=== PATIENT | female | born 1980 | race American Indian/Alaskan Native ===

== ENCOUNTER 2017-10-16 05:24 | Inpatient (IN) | payer MEDICAID ==
[2017-10-16] MEDS: LACTATED RINGERS 1,000 ML IV SCH ×2 (06:00→07:09)
[2017-10-16] MEDS ORDERED: LACTATED RINGERS 1,000 ML ONE (06:08)
[2017-10-16] MEDS ORDERED: SUBLIMAZE ONE (06:19)
[2017-10-16] MEDS ORDERED: ZOFRAN IV PRN ×2 (06:21→07:38)
[2017-10-16] MEDS ORDERED: BRETHINE IVP PRN (06:21)
[2017-10-16] MEDS ORDERED: SUBLIMAZE IV PRN (06:21)
[2017-10-16] MEDS ORDERED: STADOL IV PRN (06:21)
[2017-10-16] MEDS ORDERED: MINERAL OIL PO PRN (06:21)
[2017-10-16] MEDS ORDERED: BRETHINE SUB-Q PRN (06:21)
[2017-10-16] MEDS ORDERED: POLYCILLIN/NS 2 GM/100 ML 2 GM/100 ML BAG IV ONE (06:21)
[2017-10-16] MEDS ORDERED: ePHEDrine SULFATE IV PRN (06:21)
[2017-10-16] MEDS ORDERED: XYLOCAINE 2% INFILTRATI ONE (06:21)
--- NOTE | 2017-10-16 06:24 | History and Physical Report ---
History of Present Illness Date of examination: 10/16/17 Date of admission: 10/16/17 05:44 Chief complaint: Labor History of present illness: Pt is a EDC 10/16/17; EGA 40 0/7 weeks presents to L&D complaining of RUC' s q 3-4 mins. She received care at [facility]; however records are not available and GBS is unknown. She had a previous C Section and desires a TOLAC. Past History Past Medical History: no pertinent history Past Surgical History: section Family/Genetic History: none Social history: no significant social history, - Obstetrical History Expected Date of Delivery: 10/16/17 Actual Gestation: 40 Week(s) 0 Day(s) : 5 Medications and Allergies Allergies Allergy/AdvReac Type Severity Reaction Status Date / Time No Known Allergies Allergy Unverified 10/16/17 05:58 Home Medications Medication Instructions Recorded Confirmed Last Taken Type Loratadine [Claritin] 10 mg PO DAILY 10/16/17 10/16/17 10/15/17 History Vit-Fe Fumar-FA [ 1 tab PO QDAY 10/16/17 10/16/17 10/15/17 History Vitamin] Review of Systems All systems: negative - Vital Signs Vital signs: Vital Signs Pulse Resp BP 78 22 132/73 10/16/17 06:15 10/16/17 06:15 10/16/17 06:15 Temp Pulse Resp BP Pulse Ox 78 22 132/73 10/16/17 06:15 10/16/17 06:15 10/16/17 06:15 - Physical Exam Breasts: Positive: deferred Cardiovascular: Regular rate Lungs: Positive: Clear to auscultation Abdomen: Positive: normal appearance Genitourinary (Female): Positive: normal external genitalia Vagina: Positive: normal moisture Uterus: Positive: enlarged Extremities: Positive: normal - Obstetrical FHR: category 1 Uterine Contraction Monitor Mode: External Cervical Dilatation: 6.5 (per nurse) Cervical Effacement Percentage: 90 (per nurse) station: -1 Uterine Contraction Pattern: Regular Uterine Contraction Intensity: Strong/Firm Results Result Diagrams: 10/16/17 06:00 All other labs normal. Assessment and Plan - Patient Problems (1) 40 weeks gestation of Onset Date: 10/16/17 Current Visit: Yes Status: Acute Plan to address problem: A: IUP @ 40 0/7 weeks in labor Previous C Section - desires a TOLAC Unknown GBS P: Admit to L&D for expectant vaginal delivery Expectant IV Ampicillin (2) Active labor at term Onset Date: 10/16/17 Current Visit: Yes Status: Acute (3) Previous section Onset Date: 10/16/17 Current Visit: Yes Status: Acute
[2017-10-16 06:36] LABS: Hematocrit 38.6 % (30.3-42.9); Hemoglobin 13.3 gm/dl (10.1-14.3); Mean Corpuscular HGB Conc 35 % (30-34); Mean Corpuscular Hemoglobin 32 pg (28-32); Mean Corpuscular Volume 93 fl (79-97); Platelet Count 232 K/mm3 (140-440); Red Blood Count 4.13 M/mm3 (3.65-5.03); Red Cell Distribution Width 13.9 % (13.2-15.2)
[2017-10-16] MEDS ORDERED: PITOCin/NS 20 UNIT/1000ML DRIP 20 UNITS/1,000 ML BAG IV SCH ×2 (07:00→08:00)
[2017-10-16] MEDS ORDERED: PITOCin/NS 30 UNIT/500ML 30 UNITS/500 ML BAG IV SCH (07:00)
--- NOTE | 2017-10-16 07:29 | Anesthesia Consultation ---
Anesthesia Consult and Med Hx Date of service: 10/16/17 - Airway Anesthetic Teeth Evaluation: Good ROM Head & Neck: Adequate Mental/Hyoid Distance: Adequate Mallampati Class: Class II Intubation Access Assessment: Probably Good - Pulmonary Exam CTA: Yes - Cardiac Exam Cardiac Exam: RRR - Pre-Operative Health Status ASA Pre-Surgery Classification: ASA2 Proposed Anesthetic Plan: Epidural, Spinal - Pulmonary Hx Asthma: No COPD: No Hx Pneumonia: No - Cardiovascular System Hx Hypertension: No - Central Nervous System Hx Seizures: No Hx Psychiatric Problems: No - Endocrine Hx Renal Disease: No Hx Hypothyroidism: No Hx Hyperthyroidism: No - Hematic Hx Anemia: No Hx Sickle Cell Disease: No - Other Systems Hx Alcohol Use: No
--- NOTE | 2017-10-16 07:31 | Progress Note ---
Subjective Date of service: 10/16/17 Interval history: Unable to place CSE for labor. patient had urge to push and delivered baby before neuraxial could be completed. Only got as far as Touhy needle placement into interspinous ligament. Objective - Constitutional Vitals: Vital Signs - 12hr 10/16/17 10/16/17 10/16/17 06:15 06:25 06:55 Pulse Rate 78 Respiratory 22 22 Rate Blood Pressure 132/73 [Left] - Labs CBC & Chem 7: 10/16/17 06:00 Labs: Abnormal lab results 10/16/17 Range/Units 06:00 MCHC 35 H (30-34) %
[2017-10-16] MEDS ORDERED: PHENERGAN PR PRN (07:38)
[2017-10-16] MEDS ORDERED: PHENERGAN PO PRN (07:38)
[2017-10-16] MEDS ORDERED: LANSINOH TP PRN (07:38)
[2017-10-16] MEDS ORDERED: TYLENOL PO PRN (07:38)
[2017-10-16] MEDS ORDERED: TUCKS PAD TP PRN (07:38)
[2017-10-16] MEDS ORDERED: BENADRYL PO PRN (07:38)
--- NOTE | 2017-10-16 07:45 | Procedure Note ---
OB Delivery Note - Delivery Date of Delivery: 10/16/17 Surgeon: LASHAUN SHIPMAN Estimated blood loss: 100cc - Vaginal Delivery presentation: vertex Delivery position: OA Intrapartum events: precipitous labor- <3hr Delivery induction: none Delivery augmentation: rupture of membranes Delivery monitor: external FHT, external uterine Route of delivery: Delivery placenta: spontaneous Delivery cord: 3 umbilical vessels Episiotomy: none Delivery laceration: 2nd degree (perineal) Delivery repair: vicryl Anesthesia: local Delivery comments: delivered OA and placed on Mom's chest for [id number] bonding and delayed cord clamping - A at 1 minute: 9 at 5 minutes: 9 Gender: Male (3879gms)
[2017-10-16] MEDS ORDERED: SODIUM CHLORIDE FLUSH SYRINGE 10 ML IV NR (08:00)
[2017-10-16] MEDS: MOTRIN PO SCH ×2 (09:30→20:45)
[2017-10-16] MEDS ORDERED: DULCOLAX PR PRN (10:00)
[2017-10-16] MEDS ORDERED: AMPICILLIN/NS 1 GM/50 ML 1 GM/50 ML BAG IV SCH (10:23)
[2017-10-16] MEDS: COLACE PO SCH ×2 (11:22→22:25)
[2017-10-16] MEDS: PRENATAL VITAMIN PO SCH (11:23)
[2017-10-16] MEDS: FEOSOL PO SCH ×2 (11:23→22:25)
[2017-10-16] MEDS: NORCO 5/325 PO PRN ×2 (11:24→22:29)
--- NOTE | 2017-10-16 19:12 | Post Anesthesia Evaluation ---
- Post Anesthesia Evaluation Patient Participated: Yes Airway Patent: Yes Stable Respiratory Function: Yes Nausea/Vomiting: No Temp > 96.8F: Yes Pain Manageable: Yes Adequeate Hydration: Yes Anesthesia Complications: No (s/p aborted Epidural attempt due to labor) Block Receding Appropriately: Not Applicable (s/p aborted Epidural attempt due to labor) Patient on Ventilator: No
[2017-10-16 19:31] LABS: Hematocrit 34.2 % (30.3-42.9); Hemoglobin 11.7 gm/dl (10.1-14.3)
[2017-10-16] MEDS ORDERED: MILK OF MAGNESIA PO PRN (22:00)
[2017-10-16] MEDS: SENOKOT S PO SCH (22:30)
[2017-10-17] MEDS: MOTRIN PO SCH ×2 (02:16→15:24)
[2017-10-17] MEDS: NORCO 5/325 PO PRN ×2 (05:24→17:51)
[2017-10-17] MEDS ORDERED: M-M-R II VACCINE SUB-Q ONE (06:00)
[2017-10-17] MEDS ORDERED: BOOSTRIX IM ONE (06:00)
--- NOTE | 2017-10-17 08:35 | Progress Note ---
Assessment and Plan - Patient Problems (1) 40 weeks gestation of Onset Date: 10/16/17 Current Visit: Yes Status: Resolved (2) Active labor at term Onset Date: 10/16/17 Current Visit: Yes Status: Resolved (3) Previous section Onset Date: 10/16/17 Current Visit: Yes Status: Resolved (4) (vaginal after ) Onset Date: 10/17/17 Current Visit: Yes Status: Resolved Plan to address problem: A: S/P () - PPD #1 Doing well Subjective - Subjective Date of service: 10/17/17 Principal diagnosis: s/p - PPD #1 Interval history: Pt is feeling well without complaints. Bleeding improved. Patient reports: appetite normal, voiding normally, pain well controlled, ambulating normally, no dizzy ambulation, no nauseated Dora: doing well, nursing well Objective - Vital Signs Latest vital signs: Vital Signs Temp Pulse Resp BP BP Pulse Ox 10/17/17 07:25 98.0 F 72 20 102/69 98 10/17/17 05:24 20 10/17/17 02:16 20 10/16/17 23:14 98.2 F 72 20 111/68 97 10/16/17 22:29 20 10/16/17 20:45 20 10/16/17 17:03 97.9 F 74 18 99/64 97 10/16/17 12:43 98.4 F 81 18 113/69 96 10/16/17 10:00 98.3 F 68 18 115/57 10/16/17 09:30 12 Intake and Output 10/16/17 10/17/17 10/17/17 22:59 06:59 14:59 Intake Total 600 480 Output Total 800 Balance -200 480 Intake: Oral 600 480 Output: Urine 800 Void 800 Other: Total, Intake Amount 240 240 Total, Output Amount 800 # Voids Void 1 1 - Exam Breasts: Present: deferred Cardiovascular: Present: Regular rate Lungs: Present: Clear to auscultation Abdomen: Present: normal appearance, soft Uterus: Present: normal, firm, fundal height below umbilicus Extremities: Present: normal - Labs Labs: Laboratory Tests 10/16/17 10/16/17 10/16/17 06:00 06:00 06:00 WBC 7.2 RBC 4.13 Hgb 13.3 Hct 38.6 MCV 93 MCH 32 MCHC 35 H RDW 13.9 Plt Count 232 RPR Nonreactive Blood Type A POSITIVE Antibody Screen Negative 10/16/17 19:14 WBC RBC Hgb 11.7 Hct 34.2 MCV MCH MCHC RDW Plt Count RPR Blood Type Antibody Screen
[2017-10-17] MEDS: PRENATAL VITAMIN PO SCH (09:50)
[2017-10-17] MEDS: COLACE PO SCH ×2 (09:50→21:42)
--- NOTE | 2017-10-17 13:20 | Discharge Summary ---
Providers - Providers Date of Admission: 10/16/17 05:44 Date of discharge: 10/18/17 Attending physician: LASHAUN SHIPMAN Primary care physician: LASHAUN SHIPMAN Hospitalization Reason for admission: active labor, IUP at term Delivery: Episiotomy: none Laceration: 2nd degree Other procedures: none complications: none Discharge diagnosis: IUP at term delivered baby: male Hospital course: Unremarkable. Condition at discharge: Good Disposition: DC-01 TO HOME OR SELFCARE - Discharge Diagnoses (1) 40 weeks gestation of Status: Resolved (2) Active labor at term Status: Resolved (3) Previous section Status: Resolved (4) (vaginal after ) Status: Resolved Plan - Discharge Medications Prescriptions: Ibuprofen [Motrin 600 MG tab] 600 mg PO Q6H #30 tablet Vit-Fe Fumar-FA [ Vitamin] 1 each PO QDAY #30 tablet - Provider Discharge Summary Activity: routine, no sex for 6 weeks, no heavy lifting 4 weeks, no strenuous exercise Diet: routine Instructions: routine Additional instructions: [] Smoking cessation referral if applicable(refer to patient education folder for contact #) [] Refer to [facility] Booklet Call your doctor immediately for: * Fever > 100.5 * Heavy vaginal bleeding ( >1 pad per hour) * Severe persistent headache * Shortness of breath * Reddened, hot, painful area to leg or breast * Drainage or odor from incision. * Keep incision clean and dry at all times and follow doctor's instructions regarding bathing/showering - Follow up plan Follow up: LASHAUN SHIPMAN MD [Primary Care Provider] - 6 Weeks LISA MARTINEZ CNM [Advanced Practice Nurse] - 6 Weeks
[2017-10-17] MEDS: FEOSOL PO SCH (21:42)
[2017-10-18] MEDS: SENOKOT S PO SCH (00:06)
[2017-10-18] MEDS: MOTRIN PO SCH ×2 (00:07→05:36)
[2017-10-18] MEDS: NORCO 5/325 PO PRN (09:32)
[2017-10-18] MEDS: COLACE PO SCH (09:32)
[2017-10-18] MEDS: FEOSOL PO SCH (09:33)
[2017-10-18] MEDS: PRENATAL VITAMIN PO SCH (09:33)
[2017-10-18 10:08] VITALS: BP 115/71
== END 2017-10-18 12:45 | disposition home or self-care (01) | DRG 775 ==
LOC: TRG 05:24 → LD 05:44 → OB 09:59
PROVIDERS: ADMIT Obstetrics & Gynecology; ATTEND Obstetrics & Gynecology
PROC: 10E0XZZ Delivery of Products of Conception, External Approach (ICD-10-PCS; principal; 2017-10-16)
PROC: 0KQM0ZZ Repair Perineum Muscle, Open Approach (ICD-10-PCS; 2017-10-16)
PROC: 0WJ Anatomical Regions, General, Inspection (ICD-10-PCS; 2017-10-16)
PROC: 3E0234Z Introduction of Serum, Toxoid and Vaccine into Muscle, Percutaneous Approach (ICD-10-PCS; 2017-10-17)
DX: O62.3 Precipitate labor (principal); O34.219 Maternal care for unspecified type scar from previous cesarean delivery; O70.1 Second degree perineal laceration during delivery; Z3A.40 40 weeks gestation of pregnancy; Z37.0 Single live birth; Z23 Encounter for immunization
CPT/HCPCS: 36415; 85014; 85018; 85027; 86592; 86706; 86850; 86900; 86901; 99211; G0463; J0290; J2590; J3010; J7120